=== PATIENT | female | born 1970 | race Hispanic/Latino ===

== ENCOUNTER 2019-06-25 11:54 | Emergency (ER) | payer MEDICARE ==
[~2019-06-25] VITALS: Ht 144.8 cm; Wt 68.1 kg
[2019-06-25] MEDS ORDERED: ASPIRIN 325 MG TAB PO ONE (12:30)
[2019-06-25] MEDS ORDERED: CLONAZEPAM1 MG PO (12:58)
[2019-06-25] MEDS ORDERED: LEVOTHYROXINE50 MCG PO (12:58)
[2019-06-25] MEDS ORDERED: LOSARTAN POTASS25 MG (12:58)
--- NOTE | 2019-06-25 13:28 | Diagnostic Imaging Report ---
EXAMINATION: CXR 1 VEW - HOPD INDICATION: Chest pain COMPARISON: None FINDINGS: LINES/TUBES:None LUNGS:The lungs are well-inflated. No focal consolidation or pulmonary edema. PLEURA:No pleural effusion or pneumothorax. MEDIASTINUM:The cardiomediastinal silhouette appears normal in size and shape. BONES/SOFT TISSUES:No acute osseous injury. ABDOMEN:No free air under the diaphragm. IMPRESSION: No focal pneumonia or pulmonary edema. Signed by: Sanjeev Jones MD on 06/25/2019 1:26 PM
--- NOTE | 2019-06-25 16:34 | NUR ---
Called [facility] transfer center for a bed to transfer pt to.
[2019-06-25] MEDS ORDERED: ACETAMINOPHEN 325 MG TAB PO ONE (16:45)
--- NOTE | 2019-06-25 16:52 | NUR ---
Acceptance by Dr. Shaun Mcdermott to the ER FS and MOT to fax #[phone] Report called to [phone]
--- NOTE | 2019-06-25 17:02 | NUR ---
Called [facility] to transport pt to [place]
--- NOTE | 2019-06-25 18:26 | NUR ---
Report called to SAMI Marquis in the ER.
[2019-06-25 18:45] VITALS: BP 122/80
== END 2019-06-25 18:45 | disposition other institution (70) ==
LOC: FSED 11:54
DX: R07.89 Other chest pain (principal)
CPT/HCPCS: 71045; 80053; 82553; 84484; 85025; 85379; 93005; 99284